=== PATIENT | female | born 1960 | race Caucasian/White ===

== ENCOUNTER 2018-07-04 12:14 | Day surgery (SDC) | payer MEDICAID ==
[~2018-07-04] VITALS: Ht 157.5 cm; Wt 50.0 kg
[~2018-07-04 12:14] MED LIST: ADV50100 IH; ALBU8HFA PO; ALPR-624; BUPR300T54; GABA-530 PO; HYDR-3965 PO; POLY17PO10 PO; POTA10TA19 PO; TIOT18CA3; omeprazole
[2018-07-04 12:30] VITALS: BP 139/55
[2018-07-04] MEDS ORDERED: fentaNYL/PF 50MCG/1 ML 2ML syringe ONE (12:58)
[2018-07-04] MEDS ORDERED: MIDAZolam 5mg/5ml vial ONE (12:59)
[2018-07-04] MEDS ORDERED: LIDOcaine Viscous 15ml cup ONE (12:59)
[2018-07-04 13:20] VITALS: BP 116/68
[2018-07-04 13:30] VITALS: BP 121/64
[2018-07-04 13:40] VITALS: BP 117/59
[2018-07-04 13:50] VITALS: BP 130/56
== END 2018-07-04 14:45 | disposition home or self-care (01) ==
LOC: GI LAB 12:14
PROVIDERS: ATTEND Internal Medicine Gastroenterology
DX: I85.00 Esophageal varices without bleeding (principal); K76.6 Portal hypertension; K31.89 Other diseases of stomach and duodenum; I11.0 Hypertensive heart disease with heart failure; I50.9 Heart failure, unspecified; J44.9 Chronic obstructive pulmonary disease, unspecified; H91.8X3 Other specified hearing loss, bilateral; Z98.51 Tubal ligation status; Z86.19 Personal history of other infectious and parasitic diseases; Z87.01 Personal history of pneumonia (recurrent); Z87.09 Personal history of other diseases of the respiratory system; Z87.891 Personal history of nicotine dependence; Z90.49 Acquired absence of other specified parts of digestive tract; Z87.440 Personal history of urinary (tract) infections; Z87.39 Personal history of other diseases of the musculoskeletal system and connective tissue; Z88.5 Allergy status to narcotic agent; Z86.69 Personal history of other diseases of the nervous system and sense organs; Z79.891 Long term (current) use of opiate analgesic; Z79.899 Other long term (current) drug therapy; Z98.890 Other specified postprocedural states
CPT/HCPCS: 43235; 99152; J2250; J3010; J7030; A4620

== ENCOUNTER 2020-09-03 11:28 | Day surgery (SDC) | payer MEDICAID ==
[~2020-09-03] VITALS: Ht 162.6 cm; Wt 65.0 kg
[~2020-09-03 11:28] MED LIST changes: +BUPR-344; -BUPR300T54
[2020-09-03 12:00] VITALS: BP 118/69
[2020-09-03] MEDS ORDERED: LIDOcaine Viscous 15ml cup ONE (12:15)
[2020-09-03] MEDS ORDERED: MIDAZolam 1 MG/ML 5ML VIAL ONE (12:15)
[2020-09-03] MEDS ORDERED: fentaNYL/PF 50MCG/1 ML 2ML syringe ONE (12:15)
[2020-09-03] MEDS ORDERED: CALC600T26 PO (12:27)
[2020-09-03] MEDS ORDERED: CHOL50002 PO (12:29)
[2020-09-03] MEDS ORDERED: FERR-39 PO (12:30)
[2020-09-03] MEDS ORDERED: LACT10SO3 PO (12:32)
[2020-09-03] MEDS ORDERED: GABA300C PO (12:32)
[2020-09-03] MEDS ORDERED: LORA10TA7 PO (12:33)
[2020-09-03 12:37] VITALS: BP 123/76
[2020-09-03 12:47] VITALS: BP 126/51
[2020-09-03 12:57] VITALS: BP 122/74
== END 2020-09-03 13:10 | disposition home or self-care (01) ==
LOC: GI LAB 11:28
PROVIDERS: ATTEND Internal Medicine Gastroenterology
DX: I85.00 Esophageal varices without bleeding (principal); K74.60 Unspecified cirrhosis of liver; K76.6 Portal hypertension; K31.89 Other diseases of stomach and duodenum; Z87.891 Personal history of nicotine dependence; J44.9 Chronic obstructive pulmonary disease, unspecified; Z72.89 Other problems related to lifestyle; Z79.899 Other long term (current) drug therapy
CPT/HCPCS: 43235; 99152; J2250; J3010; J7040; A4620

== ENCOUNTER 2021-11-03 07:27 | Day surgery (SDC) | payer MEDICAID ==
[~2021-11-03] VITALS: Ht 152.4 cm; Wt 50.0 kg
[~2021-11-03 07:27] MED LIST changes: -ADV50100 IH; -ALPR-624; +CALC600T26 PO; +CHOL50002 PO; +FERR-39 PO; +GABA300C PO; -HYDR-3965 PO; +LACT10SO3 PO; +LORA10TA7 PO; -POLY17PO10 PO; -POTA10TA19 PO; -TIOT18CA3; -omeprazole
[2021-11-03 07:35] VITALS: BP 133/79
[2021-11-03] MEDS ORDERED: LIDOcaine Viscous 15ml cup ONE (08:07)
[2021-11-03] MEDS ORDERED: fentaNYL/PF 50MCG/1 ML 2ML syringe ONE (08:07)
[2021-11-03] MEDS ORDERED: MIDAZolam 1 MG/ML 5ML VIAL ONE (08:07)
[2021-11-03 09:51] VITALS: BP 118/70
[2021-11-03 10:01] VITALS: BP 110/77
[2021-11-03 10:11] VITALS: BP 122/81
[2021-11-03 10:21] VITALS: BP 127/79
== END 2021-11-03 11:10 | disposition home or self-care (01) ==
LOC: GI LAB 07:27
PROVIDERS: ATTEND Internal Medicine Gastroenterology
DX: I85.00 Esophageal varices without bleeding (principal); K44.9 Diaphragmatic hernia without obstruction or gangrene; K76.6 Portal hypertension; K31.89 Other diseases of stomach and duodenum; K29.70 Gastritis, unspecified, without bleeding; I50.9 Heart failure, unspecified; J44.9 Chronic obstructive pulmonary disease, unspecified; Z87.891 Personal history of nicotine dependence; Z86.19 Personal history of other infectious and parasitic diseases; Z79.899 Other long term (current) drug therapy
CPT/HCPCS: 43239; 99152; J2250; J3010; J7030; Z7512; A4620

== ENCOUNTER 2023-11-11 13:46 | Emergency (ER) | payer MEDICAID ==
[~2023-11-11] VITALS: Ht 160 cm; Wt 60.0 kg
[2023-11-11 13:50] VITALS: BP 124/55; PULSE 88; RESP 18; TEMP 99.4; O2SAT 95
== END 2023-11-11 17:09 | disposition left against medical advice (07) ==
LOC: ER 13:47
DX: B34.9 Viral infection, unspecified (principal); Z20.822 Contact with and (suspected) exposure to COVID-19; Z88.5 Allergy status to narcotic agent; Z79.899 Other long term (current) drug therapy
CPT/HCPCS: 36415; 71045; 87502; 87503; 87811; 99284; A4615

== ENCOUNTER 2024-02-05 16:52 | Inpatient (IN) | payer MEDICAID ==
[~2024-02-05] VITALS: Ht 160 cm; Wt 53.1 kg
[2024-02-05] MEDS ORDERED: FURO20TA4 PO (17:34)
[2024-02-05] MEDS ORDERED: UMEC1DIS INH (17:34)
[2024-02-05] MEDS ORDERED: ALBU18HF2 INH (17:34)
[2024-02-05] MEDS ORDERED: OMEP20CA16 PO (17:34)
[2024-02-05 19:07] LABS: ALBUMIN 1.6 G/DL (3.4-5.0); ANION GAP 5 (8-16); BLOOD UREA NITROGEN 14 MG/DL (7-18); BUN/CREATININE RATIO 16.3 (10.0-20.0); CALCIUM 8.8 MG/DL (8.5-10.1); CHLORIDE 106 MMOL/L (99-107); CREATININE 0.86 MG/DL (0.40-0.90); GLUCOSE 114 MG/DL (70-104); POTASSIUM 3.7 MMOL/L (3.5-5.1); PRO BRAIN NATRIURETIC PEPTIDE 1040 PG/ML (0-125); SODIUM 139 MMOL/L (135-145); eCRCL 54 ML/MIN; eGFR 66 ML/MIN
[2024-02-05 19:29] LABS: HEMATOCRIT 26.7 % (35.0-45.0); HEMOGLOBIN 8.7 g/dl (12.0-16.0); MEAN CORPUSCULAR HEMOGLOBIN 31.3 PG (27.0-31.0); MEAN CORPUSCULAR HGB CONC 32.7 g/dL (33.0-36.5); MEAN CORPUSCULAR VOLUME 95.8 FL (78-98); PLATELET COUNT 113 X10'3 (140-440); RED BLOOD COUNT 2.79 X10'6 (4.20-5.60); RED CELL DISTRIBUTION WIDTH 19.9 % (11.5-14.5); WHITE BLOOD COUNT 7.2 X10'3 (4.5-11.0)
[2024-02-05 19:55] LABS: PLATELET ESTIMATE DECREASED; TOTAL CELLS COUNTED 100
[2024-02-05 19:56] LABS: ANISOCYTOSIS 2+
[2024-02-05 20:01] LABS: POLYCHROMASIA FEW; SCHISTOCYTES FEW; TARGET CELLS 1+
[2024-02-05] MEDS: ipratropium/albuterol 3ml nebule NEB ONE (20:07)
[2024-02-05 20:11] VITALS: PULSE 94; RESP 24; O2SAT 95
[2024-02-05 20:15] VITALS: PULSE 95; RESP 20
[2024-02-05] MEDS: furosemide 10 MG/1 ML 10ml inj IV ONE (20:19)
[2024-02-05] MEDS ORDERED: magnesium hydroxide 30ml (MOM) UD suspension PO PRN (20:45)
[2024-02-05] MEDS ORDERED: magnesium sulf-water 2g/50mL 50 ML IV PRN (20:45)
[2024-02-05] MEDS ORDERED: acetaminophen 325mg tablet PO PRN (20:45)
[2024-02-05] MEDS ORDERED: mag hydrox/Alum hydrox/simeth 30ml oral suspension PO PRN (20:45)
[2024-02-05] MEDS ORDERED: magnesium sulf-water 4G/100mL 100 ML IV PRN (20:45)
[2024-02-05] MEDS ORDERED: potassium Cl 20 mEq SR tablet PO PRN ×2 (20:45)
[2024-02-05] MEDS ORDERED: ondansetron/PF 4mg/2ml inj IV PRN (20:45)
[2024-02-05] MEDS ORDERED: potassium Cl 40MEQ/1/2NS 520ml 520 ML IV PRN (20:45)
[2024-02-05 23:30] VITALS: BP 138/76; PULSE 103; RESP 19; TEMP 98; O2SAT 93
[2024-02-06] VITALS (12 sets, daily range): BP systolic 123–148; BP diastolic 71–89; PULSE 98–108; RESP 18–26; TEMP 97.7–98.3; O2SAT 93–97
[2024-02-06] MEDS: acetaminophen 325mg tablet PO PRN (01:55)
[2024-02-06 06:17] LABS: WHITE BLOOD COUNT 6.2 X10'3 (4.5-11.0)
[2024-02-06 06:20] LABS: HEMATOCRIT 24.5 % (35.0-45.0); HEMOGLOBIN 8.1 g/dl (12.0-16.0); MEAN CORPUSCULAR HEMOGLOBIN 31.6 PG (27.0-31.0); MEAN CORPUSCULAR VOLUME 95.7 FL (78-98); PLATELET COUNT 97 X10'3 (140-440); RED BLOOD COUNT 2.57 X10'6 (4.20-5.60); RED CELL DISTRIBUTION WIDTH 19.7 % (11.5-14.5)
[2024-02-06 06:27] LABS: D-DIMER 3.52 MG/L FEU (0-0.50)
[2024-02-06 06:42] LABS: ALANINE AMINOTRANSFERASE 75 U/L (12-78); ALBUMIN 1.4 G/DL (3.4-5.0); ALBUMIN/GLOBULIN RATIO 0.4 (1.1-1.5); ALKALINE PHOSPHATASE 177 IU/L (46-116); ANION GAP 4 (8-16); ASPARTATE AMINO TRANSFERASE 185 U/L (10-37); BILIRUBIN,TOTAL 2.6 MG/DL (0.1-1.0); BLOOD UREA NITROGEN 15 MG/DL (7-18); BUN/CREATININE RATIO 18.5 (10.0-20.0); CALCIUM 8.7 MG/DL (8.5-10.1); CHLORIDE 105 MMOL/L (99-107); CREATININE 0.81 MG/DL (0.40-0.90); GLUCOSE 116 MG/DL (70-104); MAGNESIUM 1.5 MG/DL (1.5-2.4); POTASSIUM 3.8 MMOL/L (3.5-5.1); SODIUM 138 MMOL/L (135-145); THYROID STIMULATING HORMONE 2.13 ulU/ml (0.34-4.50); TOTAL CARBON DIOXIDE 29.1 MMOL/L (24-32); eCRCL 57 ML/MIN; eGFR 71 ML/MIN
[2024-02-06 06:48] LABS: ANISOCYTOSIS 2+; HYPOCHROMASIA 1+; PLATELET ESTIMATE DECREASED; TARGET CELLS FEW; TOTAL CELLS COUNTED 100
[2024-02-06 06:49] LABS: GIANT PLATELET FEW; LARGE PLATELETS FEW; POIKILOCYTOSIS FEW; STOMATOCYTES FEW
[2024-02-06] MEDS: K and/or MAG REPLACEMENT MC SCH (08:00)
[2024-02-06] MEDS: heparin, porcine 5000 units/ml vial SQ SCH (08:00)
[2024-02-06] MEDS: furosemide 40mg/4ml inj IV SCH (08:37)
[2024-02-06] MEDS: aspirin 81mg tab.chew PO SCH (09:03)
[2024-02-06] MEDS: ipratropium/albuterol 3ml nebule NEB PRN (09:38)
[2024-02-07] VITALS (13 sets, daily range): BP systolic 134–161; BP diastolic 65–80; PULSE 90–113; RESP 13–25; TEMP 97.6–98.9; O2SAT 92–100
[2024-02-07 07:10] LABS: ALANINE AMINOTRANSFERASE 80 U/L (12-78); ALBUMIN 1.4 G/DL (3.4-5.0); ALBUMIN/GLOBULIN RATIO 0.4 (1.1-1.5); ALKALINE PHOSPHATASE 178 IU/L (46-116); ANION GAP 6 (8-16); ASPARTATE AMINO TRANSFERASE 239 U/L (10-37); BILIRUBIN,TOTAL 2.8 MG/DL (0.1-1.0); BLOOD UREA NITROGEN 20 MG/DL (7-18); BUN/CREATININE RATIO 23.8 (10.0-20.0); CHLORIDE 103 MMOL/L (99-107); CREATININE 0.84 MG/DL (0.40-0.90); GLUCOSE 96 MG/DL (70-104); MAGNESIUM 1.5 MG/DL (1.5-2.4); POTASSIUM 4.1 MMOL/L (3.5-5.1); SODIUM 138 MMOL/L (135-145); TOTAL CARBON DIOXIDE 28.9 MMOL/L (24-32); TOTAL PROTEIN 5.4 G/DL (6.4-8.2); eCRCL 55 ML/MIN; eGFR 68 ML/MIN
[2024-02-07 12:27] LABS: HEMATOCRIT 26.5 % (37.7-47.9); MEAN CORPUSCULAR HGB CONC 34.2 % (32-36); MEAN CORPUSCULAR VOLUME 93.7 FL (81-97); PLATELET COUNT 116 X10'3 (130-400); RED BLOOD COUNT 2.83 X10'6 (3.60-4.90); WHITE BLOOD COUNT 7.2 X10'3 (4.5-11.0)
[2024-02-07 12:28] LABS: MM ANISOCYTOSIS 2+; MM BASOPHILS % (MANUAL) 2 % (0-1); MM EOSINOPHILS % (MANUAL) 2 % (0-6); MM LYMPHOCYTES % (MANUAL) 10 % (21-51); MM MACROCYTOSIS 1+; MM MONOCYTES % (MANUAL) 8 % (2-12); MM NEUTROPHILS % (MANUAL) 78 % (42-75); MM PLATELET ESTIMATE DECREASED; MM POLYCHROMASIA 1+; MM RBC MORPHOLOGY PERF; MM TOTAL CELLS COUNTED 100
[2024-02-07 12:29] LABS: MM ACANTHOCYTES 1+; MM SCHISTOCYTES FEW; MM TARGET CELLS 3+; MM TEAR DROP CELLS FEW
[2024-02-07 18:46] LABS: % IRON SATURATION 17 % (11-46); IRON 62 UG/DL (49-151); TOTAL IRON BINDING CAPACITY 370 UG/DL (259-388)
[2024-02-07] MEDS ORDERED: iohexol 350MG/ML 100ml bottle IV ONE (19:32)
[2024-02-08] VITALS: BP 137/46; PULSE 111; RESP 14; TEMP 98.9; O2SAT 96
[2024-02-08 04:53] LABS: HEMOGLOBIN 8.3 g/dl (12.0-16.0); RED BLOOD COUNT 2.63 X10'6 (4.20-5.60)
[2024-02-08 04:55] LABS: HEMATOCRIT 24.9 % (35.0-45.0); MEAN CORPUSCULAR HEMOGLOBIN 31.4 PG (27.0-31.0); MEAN CORPUSCULAR HGB CONC 33.1 g/dL (33.0-36.5); MEAN CORPUSCULAR VOLUME 94.8 FL (78-98); MEAN PLATELET VOLUME 10.7 FL (7.4-10.4); PLATELET COUNT 117 X10'3 (140-440); RED CELL DISTRIBUTION WIDTH 20.4 % (11.5-14.5); WHITE BLOOD COUNT 6.7 X10'3 (4.5-11.0)
[2024-02-08 05:08] LABS: ALANINE AMINOTRANSFERASE 88 U/L (12-78); ALBUMIN 1.4 G/DL (3.4-5.0); ALBUMIN/GLOBULIN RATIO 0.4 (1.1-1.5); ALKALINE PHOSPHATASE 163 IU/L (46-116); ANION GAP 5 (8-16); ASPARTATE AMINO TRANSFERASE 244 U/L (10-37); BILIRUBIN,TOTAL 3.1 MG/DL (0.1-1.0); BLOOD UREA NITROGEN 24 MG/DL (7-18); BUN/CREATININE RATIO 26.4 (10.0-20.0); CALCIUM 8.9 MG/DL (8.5-10.1); CHLORIDE 102 MMOL/L (99-107); CREATININE 0.91 MG/DL (0.40-0.90); GLUCOSE 100 MG/DL (70-104); MAGNESIUM 1.3 MG/DL (1.5-2.4); POTASSIUM 4.1 MMOL/L (3.5-5.1); SODIUM 137 MMOL/L (135-145); TOTAL CARBON DIOXIDE 30.3 MMOL/L (24-32); eCRCL 51 ML/MIN; eGFR 62 ML/MIN
[2024-02-08 05:14] LABS: TOTAL CELLS COUNTED 100
[2024-02-08 05:15] LABS: ANISOCYTOSIS 3+; LARGE PLATELETS FEW; PLATELET ESTIMATE DECREASED; SCHISTOCYTES FEW; TARGET CELLS 1+
[2024-02-08 05:16] LABS: BASOPHILS % (MANUAL) 1 % (0-1); NEUTROPHILS % (MANUAL) 73 % (42-75)
[2024-02-08 06:00] VITALS: BP 137/79; PULSE 104; RESP 20; TEMP 98.1; O2SAT 94
[2024-02-08 08:00] VITALS: RESP 20; O2SAT 94
[2024-02-08] MEDS: magnesium Cl slow-release 64mg tablet PO PRN (08:24)
[2024-02-08 10:49] VITALS: PULSE 96; RESP 20; O2SAT 96
[2024-02-08 10:54] VITALS: PULSE 99; RESP 20
[2024-02-08] MEDS ORDERED: FURO40TA4 PO (10:59)
[2024-02-08 11:00] VITALS: BP 140/78; PULSE 104; RESP 15; TEMP 97.8; O2SAT 96
[2024-02-08] MEDS ORDERED: CARV3.122 PO (11:03)
[2024-02-08] MEDS ORDERED: amox tr/potassium clavulanate 500mg/125mg TAB PO SCH (17:30)
[2024-02-08] MEDS ORDERED: LEVO-65 PO (19:14)
[2024-02-10 10:11] LABS: HEPATITIS C VIRUS ANTIBODY Reactive (Non Reactive)
== END 2024-02-08 12:10 | disposition home or self-care (01) | DRG 194 ==
LOC: ER 16:52 → ED HOLD 20:48 → PCU 3S 23:04
PROVIDERS: ADMIT Internal Medicine Critical Care Medicine; ATTEND Internal Medicine
PROC: B32T1ZZ Computerized Tomography (CT Scan) of Left Pulmonary Artery using Low Osmolar Contrast (ICD-10-PCS; principal; 2024-02-07)
PROC: B3201ZZ Computerized Tomography (CT Scan) of Thoracic Aorta using Low Osmolar Contrast (ICD-10-PCS; 2024-02-07)
PROC: B32S1ZZ Computerized Tomography (CT Scan) of Right Pulmonary Artery using Low Osmolar Contrast (ICD-10-PCS; 2024-02-07)
DX: I50.33 Acute on chronic diastolic (congestive) heart failure (principal); J18.9 Pneumonia, unspecified organism; J44.0 Chronic obstructive pulmonary disease with (acute) lower respiratory infection; J44.1 Chronic obstructive pulmonary disease with (acute) exacerbation; K21.9 Gastro-esophageal reflux disease without esophagitis; D50.8 Other iron deficiency anemias; Z66 Do not resuscitate; Z88.5 Allergy status to narcotic agent; Z79.899 Other long term (current) drug therapy
CPT/HCPCS: 36415; 71045; 71275; 80048; 80053; 83540; 83550; 83735; 83880; 84443; 84484; 85007; 85025; 85379; 86803; 87081; 87522; 93005; 93306; 94640; 94760; 96374; 99285; A4615; G0378; J1940; Q9967